=== PATIENT | female | born 1980 | race Caucasian/White ===

== ENCOUNTER 2022-04-30 08:21 | Emergency (ER) | payer MEDICAID, OTHER ==
[~2022-04-30] VITALS: Ht 160 cm; Wt 64.0 kg
[2022-04-30 08:25] VITALS: BP 146/83
== END 2022-04-30 08:36 | disposition home or self-care (01) ==
LOC: ER 08:34
DX: R56.9 Unspecified convulsions (principal); E11.9 Type 2 diabetes mellitus without complications
CPT/HCPCS: 99283

== ENCOUNTER 2025-01-28 10:58 | Emergency (ER) | payer MEDICAID, OTHER ==
[~2025-01-28] VITALS: Ht 167.6 cm; Wt 77.0 kg
[~2025-01-28 10:58] MED LIST: NITR100C PO
[2025-01-28 11:00] VITALS: BP 142/72; PULSE 114; RESP 20; TEMP 36.6; O2SAT 100
== END 2025-01-28 11:38 | disposition left against medical advice (07) ==
LOC: ER 10:58
DX: R56.9 Unspecified convulsions (principal); E11.9 Type 2 diabetes mellitus without complications; Z53.29 Procedure and treatment not carried out because of patient's decision for other reasons; Z79.899 Other long term (current) drug therapy
CPT/HCPCS: 99283; Z7610; A4606

== ENCOUNTER 2025-03-11 07:27 | Emergency (ER) | payer MEDICAID, OTHER ==
[~2025-03-11] VITALS: Ht 160 cm; Wt 77.0 kg
[2025-03-11 07:28] VITALS: BP 132/72; PULSE 100; RESP 18; TEMP 36.8; O2SAT 99
== END 2025-03-11 09:15 | disposition home or self-care (01) ==
LOC: ER 07:27
DX: R56.9 Unspecified convulsions (principal); E11.9 Type 2 diabetes mellitus without complications; Z79.4 Long term (current) use of insulin
CPT/HCPCS: 82962; 99283

== ENCOUNTER 2025-04-17 06:43 | Emergency (ER) | payer OTHER ==
[~2025-04-17] VITALS: Ht 162.6 cm; Wt 65.0 kg
[2025-04-17 06:44] VITALS: O2SAT 99
[2025-04-17 07:21] LABS: BASOPHILS % 0.5 % (0.0-2.0); EOSINOPHILS % 1.7 % (0.0-5.0); HEMATOCRIT. 40.2 % (36.0-48.0); HEMOGLOBIN. 13.2 g/dL (12.0-16.0); LYMPHOCYTES % 68.4 % (20.0-50.0); MEAN PLATELET VOLUME 8.2 fl (7.4-10.4); MONOCYTES % 6.4 % (2.0-8.0); NEUTROPHILS % 23.0 % (40.0-76.0); PLATELET 255 x1000/uL (130-400); RED BLOOD CELL COUNT 5.05 mill/uL (4.2-5.4); RED CELL DISTRIBUTION WIDTH 15.3 % (11.6-14.6)
[2025-04-17 07:39] LABS: CREATININE 0.8 mg/dL (0.6-1.0)
[2025-04-17 07:40] LABS: PROTEIN TOTAL 7.2 g/dL (6.0-8.3); UREA NITROGEN BLOOD 11 mg/dL (9-23)
[2025-04-17 07:41] LABS: ASPARTATE AMINOTRANSFERASE 23 IU/L (<34)
[2025-04-17 07:42] LABS: BILIRUBIN TOTAL 0.9 mg/dL (0.1-1.0)
[2025-04-17 08:24] LABS: HCG SCREEN NEGATIVE
[2025-04-17 09:03] VITALS: BP 128/71; PULSE 85; RESP 18; TEMP 35.8; O2SAT 100
== END 2025-04-17 09:11 | disposition home or self-care (01) ==
LOC: ER 06:43
DX: R56.9 Unspecified convulsions (principal); E11.9 Type 2 diabetes mellitus without complications; D72.819 Decreased white blood cell count, unspecified
CPT/HCPCS: 36415; 80053; 82962; 84703; 85025; 93005; 99283